=== PATIENT | female | born 1955 | race Two or more races ===

== ENCOUNTER 2019-10-21 14:10 | Outpatient (CLI) | payer MEDICAID ==
--- NOTE | 2019-10-21 20:30 | Consultation ---
DATE OF CONSULTATION: 10/21/2019 CHIEF COMPLAINT: Referral for endoscopic ultrasound. HISTORY OF PRESENT ILLNESS: This is a very pleasant 64-year-old female with few medical problems, which I will dictate in a second, who was referred to us for possible endoscopic ultrasound. The patient was here with her daughter. Apparently, she was referred from Dr. Keon Coats, who is a surgeon. Apparently, the patient had a lot of lymph nodes around her stomach, which I do not have the report of the imaging studies. This was done on a PET scan and Dr. Keon Coats wants to get an EUS with FNA to rule out lymphoma. PAST MEDICAL HISTORY: 1. Hypertension. 2. Hyperglycemia. 3. Hypothyroidism. PAST SURGICAL HISTORY: Varicose vein surgeries in the lower extremities. MEDICATIONS: See medication reconciliation list. FAMILY HISTORY: No family history of GI malignancies. SOCIAL HISTORY: The patient denies any tobacco, alcohol, or IV drug use. ALLERGIES: No known allergies. REVIEW OF SYSTEMS: A 10-point review of systems was performed and it was positive for mild diarrhea and no weight loss. PHYSICAL EXAMINATION: GENERAL: A well-developed female in no acute distress. HEENT: Normocephalic and atraumatic. Sclerae anicteric. NECK: Supple. No evidence of obvious lymphadenopathy. CARDIOVASCULAR: Regular rate and rhythm. Plus S1, S2. LUNGS: Clear to auscultation bilaterally. ABDOMEN: Positive bowel sounds. Soft and nontender. No rebound. No guarding. No peritoneal sign. EXTREMITIES: No cyanosis. No clubbing. No edema. ASSESSMENT: This is a 64-year-old female with questionable perigastric lymphoma. Plan will be to obtain the CT report from Dr. Keon Coats's office. Meanwhile, the patient needs to be scheduled for EGD, EUS, and FNA of these lymph nodes. The patient was also recommended to have a colonoscopy after above is done for evaluation of screening colonoscopy. The patient was informed of the risks and benefits of procedure. We are waiting for authorization for the above procedures. Francis Chacon M.D. DR: Rahul JOB#: [id number] CC:
[2019-10-25] MEDS ORDERED: METOPROLOL SUCC25 MG ORAL (15:40)
[2019-10-25] MEDS ORDERED: LOSARTAN-HCTZ1 EACH ORAL (15:40)
[2019-10-25] MEDS ORDERED: AMLODIPINE BESYL5 MG ORAL (15:40)
[2019-10-25] MEDS ORDERED: ATORVASTATIN CA40 MG ORAL (15:40)
[2019-10-25] MEDS ORDERED: SYNTHROID25 MCG ORAL (15:40)
[2019-10-25] MEDS ORDERED: DICLOFENAC SODI75 MG ORAL (15:40)
== END 2019-10-21 16:10 | disposition home or self-care (01) ==
LOC: PAN 14:10
DX: R19.7 Diarrhea, unspecified (principal); I10 Essential (primary) hypertension; E03.9 Hypothyroidism, unspecified
CPT/HCPCS: G0463